=== PATIENT | male | born 1965 | race Caucasian/White ===

== ENCOUNTER 2017-10-29 17:34 | Emergency (ER) | payer OTHER ==
[2017-10-29] MEDS: IV NORMAL SALINE 1000ML BAG 1,000 ML IV ×2 (18:07→19:14)
[2017-10-29 18:14] LABS: ANION GAP 5 (6-14); BLOOD UREA NITROGEN 15 mg/dL (8-26); CALCIUM 9.4 mg/dL (8.5-10.1); CARBON DIOXIDE 29 mmol/L (21-32); CHLORIDE 105 mmol/L (98-107); CREATININE 1.4 mg/dL (0.7-1.3); GFR 52.8; GLUCOSE 123 mg/dL (70-99); POTASSIUM 3.8 mmol/L (3.5-5.1); SODIUM 139 mmol/L (136-145)
[2017-10-29 18:22] LABS: TROPONINI < 0.017 ng/mL (0.000-0.055)
[2017-10-29 18:28] LABS: CKMB INDEX 1.5 % (0-4); CKMB MASS 0.7 ng/mL (0.0-3.6); CREATINE KINASE 46 U/L (39-308)
[2017-10-29 19:51] LABS: ADD MAN DIFF? NO
[2017-10-29 19:56] LABS: BASO # 0.1 x10^3/uL (0.0-0.2); BASO % 0 % (0-3); EOS # 0.1 x10^3/uL (0.0-0.7); EOS % 0 % (0-3); HEMATOCRIT 43.4 % (39.0-53.0); HEMOGLOBIN 14.6 g/dL (13.0-17.5); LYMPH # 1.4 x10^3/uL (1.0-4.8); LYMPH % 10 % (24-48); MEAN CORPUSCULAR HEMOGLOBIN 31 pg (25-35); MEAN CORPUSCULAR HGB CONC 34 g/dL (31-37); MEAN CORPUSCULAR VOLUME 91 fL (79-100); MONO # 0.9 x10^3/uL (0.0-1.1); MONO % 6 % (0-9); NEUT # 12.1 x10^3uL (1.8-7.7); NEUT % 83 % (31-73); PLATELET COUNT 187 x10^3/uL (140-400); RED BLOOD COUNT 4.78 x10^6/uL (4.30-5.70); RED CELL DISTRIBUTION WIDTH 13.1 % (11.5-14.5); WHITE BLOOD COUNT 14.5 x10^3/uL (4.0-11.0)
== END 2017-10-29 20:55 | disposition home or self-care (01) ==
LOC: ER 17:34
DX: R55 Syncope and collapse (principal); F17.210 Nicotine dependence, cigarettes, uncomplicated
CPT/HCPCS: 36415; 71045; 80048; 82553; 84484; 85025; 93005; 96360; 96361; 99285-25; J7030

== ENCOUNTER 2019-10-10 10:32 | Emergency (ER) | payer BC, OTHER ==
[~2019-10-10] VITALS: Ht 175.3 cm; Wt 81.8 kg
[2019-10-10] MEDS ORDERED: IV NORMAL SALINE 1000ML BAG 1,000 ML IV ONE ×2 (11:15)
[2019-10-10] MEDS ORDERED: DIPH,PERTUSS(ACELL),TET VAC/PF 0.5 ML SYRINGE. VAX IM ONE (11:15)
[2019-10-10] MEDS ORDERED: LIDOCAINE 1%/EPI 1:100,000 20 ML VIAL. INJ ONE (11:15)
--- NOTE | 2019-10-10 11:35 | RAD ---
EXAM: CT Head without IV contrast INDICATION: Reason: passed out, hit head on deck / Spl. Instructions: / History: TECHNIQUE: Multi-detector row CT images were obtained of the head without the use of IV contrast. All CT scans performed at this facility utilize dose optimization techniques as appropriate to the exam, including the following: Automated exposure control and adjustment of the mA and/or KV according to patient size (this includes techniques or standardized protocols for targeted exams where dose is indication/reason for exam). COMPARISON: None FINDINGS: BRAIN PARENCHYMA: No evidence of acute intraparenchymal hemorrhage or infarct. No abnormal parenchymal density or mass. VENTRICLES & EXTRA-AXIAL SPACES: Ventricles are within normal limits. Basilar cisterns are patent. No pathologic extra-axial fluid collection or mass. ORBITS: Orbital contents are unremarkable. SINUSES: Visualized paranasal sinuses and mastoid air cells are clear. OSSEOUS & SOFT TISSUES: Calvarium and skull base are intact. IMPRESSION: No acute intracranial pathology. Electronically signed by: Golden Carter MD (10/10/2019 11:32 AM) [id number]
[2019-10-10 11:52] LABS: BASO # 0.1 x10^3/uL (0.0-0.2); BASO % 1 % (0-3); EOS # 0.1 x10^3/uL (0.0-0.7); EOS % 2 % (0-3); HEMATOCRIT 45.3 % (39.0-53.0); HEMOGLOBIN 15.6 g/dL (13.0-17.5); LYMPH # 1.7 x10^3/uL (1.0-4.8); LYMPH % 30 % (24-48); MEAN CORPUSCULAR HEMOGLOBIN 31 pg (25-35); MEAN CORPUSCULAR HGB CONC 35 g/dL (31-37); MEAN CORPUSCULAR VOLUME 90 fL (79-100); MONO # 0.5 x10^3/uL (0.0-1.1); MONO % 8 % (0-9); NEUT # 3.2 x10^3/uL (1.8-7.7); NEUT % 58 % (31-73); PLATELET COUNT 191 x10^3/uL (140-400); RED BLOOD COUNT 5.02 x10^6/uL (4.30-5.70); RED CELL DISTRIBUTION WIDTH 13.6 % (11.5-14.5); WHITE BLOOD COUNT 5.5 x10^3/uL (4.0-11.0)
[2019-10-10 11:56] LABS: CALCIUM 9.1 mg/dL (8.5-10.1); CREATININE 1.2 mg/dL (0.7-1.3); GFR 62.6; POTASSIUM 4.1 mmol/L (3.5-5.1)
[2019-10-10 12:02] LABS: ALBUMIN 3.8 g/dL (3.4-5.0); ALBUMIN/GLOBULIN RATIO 1.4 (1.0-1.7); TOTAL BILIRUBIN 0.5 mg/dL (0.2-1.0); TOTAL PROTEIN 6.5 g/dL (6.4-8.2)
--- NOTE | 2019-10-10 14:24 | PHYS DOC ---
Past Medical History Past Medical History: No Pertinent History Past Surgical History: No Surgical History Smoking Status: Current Every Day Smoker Alcohol Use: None Drug Use: None General Adult EDM: Chief Complaint: MECHANICAL FALL HPI: HPI: Patient is a 54 year old was outside painting his deck. It was very hot outside. He did a full day work yesterday already. He was trying to drink some coffee and choked on the coffee, passed out, face planted on the ground. He is not up to date on his tetanus vaccination. He is complaining of headache, no neck pain, no extremities pain. He denied any chest pain. NO SHORTNESS OF AIR, NO COUGH, NO FEVER. Review of Systems: Review of Systems: Constitutional: Denies fever or chills. [] Eyes: Denies change in visual acuity. [] HENT: Denies nasal congestion or sore throat. [] Respiratory: Denies cough or shortness of breath. [] Cardiovascular: Denies chest pain or edema. [] GI: Denies abdominal pain, nausea, vomiting, bloody stools or diarrhea. [] : Denies dysuria. [] Musculoskeletal: Denies back pain or joint pain. [] Integument: Denies rash. POSITIVE FACIAL LACERATION. Neurologic: pOSITIVE FOR headache, AND SYNCOPE, NO focal weakness or sensory changes. [] Endocrine: Denies polyuria or polydipsia. [] Lymphatic: Denies swollen glands. [] Psychiatric: Denies depression or anxiety. [] Heart Score: Risk Factors: Risk Factors: DM, Current or recent (<one month) smoker, HTN, HLP, family history of CAD, obesity. Risk Scores: Score 0 - 3: 2.5% MACE over next 6 weeks - Discharge Home Score 4 - 6: 20.3% MACE over next 6 weeks - Admit for Clinical Observation Score 7 - 10: 72.7% MACE over next 6 weeks - Early Invasive Strategies Current Medications: Current Medications Medications (Trade) Dose Ordered Sig/Edelmira Start Time Stop Time Status Last Admin Dose Admin Diphtheria/ Tetanus/Acell Pertussis (ADACEL TDap SYRINGE) 0.5 ml ONCE ONCE 10/10/19 11:15 10/10/19 11:16 DC 10/10/19 11:15 0.5 ML Lidocaine/ Epinephrine (LIDOCAINE 1%-EPI 1:100,000 Multi-Dose) 20 ml 1X ONCE 10/10/19 11:15 10/10/19 11:16 DC 10/10/19 11:14 20 ML Sodium Chloride 1,000 ml @ 1,000 mls/hr 1X ONCE 10/10/19 11:15 10/10/19 12:14 DC 10/10/19 11:10 1,000 MLS/HR Allergies: Allergies: Allergies Coded Allergies Type Severity Reaction Last Updated Verified No Known Drug Allergies 10/29/17 No Physical Exam: PE: Constitutional: Well developed, well nourished, no acute distress, non-toxic appearance. [] HENT: Normocephalic, LEFT FOREHEAD WITH LACERATION, bilateral external ears normal, oropharynx moist, no oral exudates, nose normal. [] Eyes: PERRLA, EOMI, conjunctiva normal, no discharge. [] Neck: Normal range of motion, no tenderness, supple, no stridor. [] Cardiovascular:Heart rate regular rhythm, no murmur [] Lungs & Thorax: Bilateral breath sounds clear to auscultation [] Abdomen: Bowel sounds normal, soft, no tenderness, no masses, no pulsatile masses. [] Skin: Warm, dry, no erythema, 5 CM LACERATION ON LEFT FOREHEAD AREA JUST ABOVE LEFT EYE BROWN AREA. Back: No tenderness, no CVA tenderness. [] Extremities: No tenderness, no cyanosis, no clubbing, ROM intact, no edema. [] Neurologic: Alert and oriented X 3, normal motor function, normal sensory function, no focal deficits noted. [] Psychologic: Affect normal, judgement normal, mood normal. [] Current Patient Data: Labs: Laboratory Tests Test 10/10/19 10:43 10/10/19 11:07 Glucose (Fingerstick) 103 mg/dL (70-99) H White Blood Count 5.5 x10^3/uL (4.0-11.0) Red Blood Count 5.02 x10^6/uL (4.30-5.70) Hemoglobin 15.6 g/dL (13.0-17.5) Hematocrit 45.3 % (39.0-53.0) Mean Corpuscular Volume 90 fL (79-100) Mean Corpuscular Hemoglobin 31 pg (25-35) Mean Corpuscular Hemoglobin Concent 35 g/dL (31-37) Red Cell Distribution Width 13.6 % (11.5-14.5) Platelet Count 191 x10^3/uL (140-400) Neutrophils (%) (Auto) 58 % (31-73) Lymphocytes (%) (Auto) 30 % (24-48) Monocytes (%) (Auto) 8 % (0-9) Eosinophils (%) (Auto) 2 % (0-3) Basophils (%) (Auto) 1 % (0-3) Neutrophils # (Auto) 3.2 x10^3/uL (1.8-7.7) Lymphocytes # (Auto) 1.7 x10^3/uL (1.0-4.8) Monocytes # (Auto) 0.5 x10^3/uL (0.0-1.1) Eosinophils # (Auto) 0.1 x10^3/uL (0.0-0.7) Basophils # (Auto) 0.1 x10^3/uL (0.0-0.2) Sodium Level 143 mmol/L (136-145) Potassium Level 4.1 mmol/L (3.5-5.1) Chloride Level 105 mmol/L (98-107) Carbon Dioxide Level 31 mmol/L (21-32) Anion Gap 7 (6-14) Blood Urea Nitrogen 14 mg/dL (8-26) Creatinine 1.2 mg/dL (0.7-1.3) Estimated GFR (Cockcroft-Gault) 62.6 BUN/Creatinine Ratio 12 (6-20) Glucose Level 112 mg/dL (70-99) H Calcium Level 9.1 mg/dL (8.5-10.1) Magnesium Level 2.0 mg/dL (1.8-2.4) Total Bilirubin 0.5 mg/dL (0.2-1.0) Aspartate Amino Transferase (AST) 22 U/L (15-37) Alanine Aminotransferase (ALT) 32 U/L (16-63) Alkaline Phosphatase 63 U/L (46-116) Creatine Kinase 66 U/L (39-308) Troponin I Quantitative < 0.017 ng/mL (0.000-0.055) Total Protein 6.5 g/dL (6.4-8.2) Albumin 3.8 g/dL (3.4-5.0) Albumin/Globulin Ratio 1.4 (1.0-1.7) Laboratory Tests 10/10/19 11:07 Laboratory Tests 10/10/19 11:07 Vital Signs: Vital Signs Date Time Temp Pulse Resp B/P (MAP) Pulse Ox O2 Delivery O2 Flow Rate FiO2 10/10/19 10:48 98.3 82 10 147/81 (103) 96 Room Air 98.3 EKG: EKG: EKG was done at 1144, heart rate 64 bpm, normal sinus rhythm, no ST segment elevation. [] Radiology/Procedures: Radiology/Procedures: [][facility] [address] [place] [address] IMAGING REPORT Signed PATIENT: SAPNA SETHI RACCOUNT: [id number] : 1965 LOCATION: ER AGE: 54 SEX: M EXAM STATUS: PRE ER ORD. PHYSICIAN: JAMIR ALMAZAN DO REASON: passed out, hit head on deck PROCEDURE: CT HEAD WO CONTRAST EXAM: CT Head without IV contrast INDICATION: Reason: passed out, hit head on deck / Spl. Instructions: / History: TECHNIQUE: Multi-detector row CT images were obtained of the head without the use of IV contrast. All CT scans performed at this facility utilize dose optimization techniques as appropriate to the exam, including the following: Automated exposure control and adjustment of the mA and/or KV according to patient size (this includes techniques or standardized protocols for targeted exams where dose is indication/reason for exam). COMPARISON: None FINDINGS: BRAIN PARENCHYMA: No evidence of acute intraparenchymal hemorrhage or infarct. No abnormal parenchymal density or mass. VENTRICLES & EXTRA-AXIAL SPACES: Ventricles are within normal limits. Basilar cisterns are patent. No pathologic extra-axial fluid collection or mass. ORBITS: Orbital contents are unremarkable. SINUSES: Visualized paranasal sinuses and mastoid air cells are clear. OSSEOUS & SOFT TISSUES: Calvarium and skull base are intact. IMPRESSION: No acute intracranial pathology. Electronically signed by: Patel Carter MD (10/10/2019 11:32 AM) [id number] DICTATED and SIGNED BY: PATEL CARTER MD DATE: 10/10/19 1132 Laceration Repair Procedure: Indication: Facial laceration Procedure: The patient was placed in the appropriate position and anesthesia around the wound on left side forehead just above the left eye brown area, 15 ml of 1% lidocaine with epi was injected into the wound . The area was then cleaned with saline. The laceration was closed on the skin with 12 sutures, 5-0-prolene. The wound area was then dressed with nonstick gauze. Total repaired wound length: 5 cm Other Items: none The patient tolerated the procedure well. Complications: NONE. Course & Med Decision Making: Course & Med Decision Making Pertinent Labs and Imaging studies reviewed. (See chart for details) [] Dragon Disclaimer: Dragon Disclaimer: This electronic medical record was generated, in whole or in part, using a voice recognition dictation system. Departure Departure Impression: Primary Impression: Facial laceration Additional Impressions: Syncope Dehydration Disposition: 01 HOME, SELF-CARE Condition: STABLE Referrals: ANA MARIA LEUNG MD (PCP) PLEASE FOLLOW UP WITH YOUR DOCTOR IN 7 DAYS FOR SUTURES REMOVAL Patient Instructions: Dehydration, Adult, Facial Laceration, Syncope Justicifation of Admission Dx: Justifications for Admission: Justification of Admission Dx: N/A JAMIR ALMAZAN DO Oct 10, 2019 14:24
[2019-10-10] MEDS ORDERED: NEOMY/BACITR/POLYMYXIN OINT PACKET. TP ONE (14:30)
[2019-10-10 14:45] VITALS: BP 129/72
--- NOTE | 2019-10-11 06:20 | EKG ---
[facility] [address] [place] [address] Test Date: 2019-10-10 Test Time: 11:44:21 Pat Name: SAPNA SETHI Department: Room: Gender: M [employer] Manager: : 1965 Requested By: JAMIR ALMAZAN Order Number: [id number] Reading MD: Venkat Sanon MD Measurements Intervals [place] Rate: 64 P: 19 GA: 170 QRS: -13 QRSD: 92 T: 43 QT: 390 QTc: 406 Interpretive Statements SINUS RHYTHM Electronically Signed On 10-11-2019 13:05:35 CDT by Venkat Sanon MD
== END 2019-10-10 15:13 | disposition home or self-care (01) ==
LOC: ER 10:32
DX: S01.112A Laceration without foreign body of left eyelid and periocular area, initial encounter (principal); E86.0 Dehydration; R55 Syncope and collapse; F17.200 Nicotine dependence, unspecified, uncomplicated; W18.39XA Other fall on same level, initial encounter; Y93.89 Activity, other specified; Y92.89 Other specified places as the place of occurrence of the external cause; Y99.8 Other external cause status
CPT/HCPCS: 12013; 36415; 70450; 80053; 82550; 82962; 83735; 84484; 85025; 90471; 90715; 93005; 96360; 99285; J3490; J7030; 12002